=== PATIENT | female | born 1990 | race Caucasian/White ===

== ENCOUNTER 2020-02-02 16:44 | Emergency (ER) | payer OTHER, SELFPAY ==
--- NOTE | ~2020-02-02 | XR_ITS ---
XR knee RT min 4V 02/02/2020 17:22 INDICATION: Right knee pain for 2 days PROCEDURE: 4 views right knee COMPARISON: No prior studies for comparison. FINDINGS: Fracture, dislocation or subluxation is not identified. No significant joint effusion. The soft tissues appear within normal limits. No foreign bodies are identified. IMPRESSION: 1: NO ACUTE BONE OR JOINT ABNORMALITY IDENTIFIED. Reviewed, dictated and finalized at location A.
[2020-02-02 16:56] VITALS: BP 154/111; PULSE 82; RESP 20; TEMP 36.7; O2SAT 98
--- NOTE | 2020-02-02 17:16 | ED.EXTPRO ---
HPI - Extremity Problem General Chief complaint: Extremity Problem,Nontraumatic Stated complaint: r knee pain Time Seen by Provider: 02/02/20 17:00 Source: patient Mode of arrival: ambulatory Limitations: no limitations History of Present Illness HPI Narrative: Kaci is a 29-year-old female patient. She presents ambulatory to the emergency room. She states that she has had pain to the right knee for the past 3 days. There is no history of any trauma. The pain is both on the medial and lateral aspect as well as the anterior aspect. There is no swelling. There is no history of fever. She has not had similar problems in the past. MD Complaint: extremity pain Onset (ago): day(s) ( Three days) Pain Consistency: intermittent Location: right and knee Severity scale (1-10): 7 Quality: sharp Radiation: none Relieving factors: nothing Exacerbating factors: weight bearing, walking and other ( came ambulatory to the ER, gait appeared to be fairly normal with slight favoring of her right knee) Associated symptoms: denies other symptoms Context: other ( no history of fall or trauma. No history of gout) Related Data Home Medications Medication Instructions Recorded Confirmed norethindrone-ethin estradiol 1 tablet PO DAILY 02/02/20 02/02/20 [Nortrel 0.5/35 (28)] spironolactone 50 mg PO DAILY 02/02/20 02/02/20 valacyclovir 500 mg PO BID 02/02/20 02/02/20 Allergies Allergy/AdvReac Type Severity Reaction Status Date / Time No Known Allergies Allergy Verified 02/02/20 17:30 Review of Systems Review of Systems: All systems reviewed & are unremarkable except as noted in HPI and below Constitutional: Constitutional: Reports as per HPI, Reports no additional constitutional complaints, Denies chills and Denies fever(s) Eyes: Eyes: Reports as per HPI and Reports no additional eye complaints ENT: Reports system reviewed and no additional complaints, except as documented, Reports as per HPI, Denies dizziness and Denies sore throat Cardiovascular: Cardiovascular: Reports as per HPI, Reports no additional cardiovascular complaints, Denies chest pain and Denies radiating jaw, neck or arm pain Respiratory: Respiratory: Reports as per HPI, Reports no additional respiratory complaints, Denies cough and Denies dyspnea Gastrointestinal: Gastrointestinal: Reports as per HPI, Reports no additional gastrointestinal complaints, Denies abdominal pain, Denies nausea and Denies vomiting Genitourinary: Genitourinary: Reports no additional female genitourinary complaints, Denies hematuria and Denies dysuria Musculoskeletal: Musculoskeletal: Reports no additional musculoskeletal complaints and Reports arthralgias Integumentary/Breasts: Skin/Breast: Reports system reviewed and no additional complaints, except as docu, Reports as per HPI, Denies erythema and Denies rash Neurologic: Reports system reviewed and no additional complaints, except as documented, Reports as per HPI, Denies vertigo, Denies dizziness, Denies syncope, Denies headache(s), Denies focal weakness, Denies numbness and Denies weakness Psychiatric: Psychiatric: Reports no additional psychiatric complaints, Reports as per HPI and Denies anxiety Endocrine: Endocrine: Reports no additional endocrine complaints and Denies polydipsia Hematologic/Lymphatic: Hematologic/Lymphatic: Reports no additional hematologic/lymphatic complaints, Reports as per HPI, Denies easy bleeding and Denies easy bruising Allergic/Immunologic: Allergic/Immunologic: Reports no additional allergic/immunologic complaints, Reports as per HPI, Denies lip swelling and Denies tongue swelling [facility] Past Medical History Medical History (Updated 02/02/20 @ 17:43 by Chadd Reddy MD) Exogenous obesity Surgical History Surgical History (Updated 02/02/20 @ 17:22 by Chadd Reddy MD) History of section History of cystoscopy History of laparoscopy Social History Social History (Updated 01/20
[2020-02-02 17:46] VITALS: RESP 20
== END 2020-02-02 17:46 | disposition home or self-care (01) ==
PROVIDERS: Emergency Provider Surgery
DX: S83.91XA Sprain of unspecified site of right knee, initial encounter (principal)
CPT/HCPCS: 73564; 99282; 99283

== ENCOUNTER 2020-02-14 08:06 | Emergency (ER) | payer OTHER, SELFPAY ==
[2020-02-14 08:15] VITALS: BP 166/102; PULSE 85; RESP 20; TEMP 36.9; O2SAT 97
--- NOTE | 2020-02-14 08:21 | ED.NAVMDI ---
HPI - Nausea/Vomiting/Diarrhea General Chief complaint: Nausea/Vomiting/Diarrhea Stated complaint: tempamatic fever at work diarrhea abd pain Time Seen by Provider: 02/14/20 08:21 Source: patient Mode of arrival: ambulatory Limitations: no limitations History of Present Illness HPI Narrative: 29-year-old woman comes in today because she was sent home from work for having at screening temperature of 99.7?. She states that she had 2 bouts of diarrhea yesterday and some nausea and some mild abdominal pain however she has had no prior fever or chills, cough or cold symptoms, travel, or shortness of breath. Her only sick exposure was her son who was diagnosed with strep last week. Patient states that she has been treated for hypertension in the past with spironolactone but is out of her medication currently. She states that she has been unable to get in to see her doctor. MD elicited complaint: nausea, diarrhea and abdominal pain Location of pain: diffuse Pain consistency: intermittent and now resolved Exacerbating factors: none Relieving factors: none Related Data Home Medications Medication Instructions Recorded Confirmed norethindrone-ethin estradiol 1 tablet PO DAILY 02/02/20 02/14/20 [Nortrel 0.5/35 (28)] spironolactone 50 mg PO DAILY 02/02/20 02/14/20 valacyclovir 500 mg PO BID 02/02/20 02/14/20 Allergies Allergy/AdvReac Type Severity Reaction Status Date / Time No Known Allergies Allergy Verified 02/02/20 17:30 Review of Systems Constitutional: Constitutional: Reports as per HPI Eyes: Eyes: Denies change in vision and Denies photophobia ENT: Denies dysphagia, Denies nasal congestion and Denies sore throat Cardiovascular: Cardiovascular: Denies chest pain and Denies radiating jaw, neck or arm pain Respiratory: Respiratory: Denies cough, Denies dyspnea and Denies wheezing Gastrointestinal: Gastrointestinal: Reports as per HPI, Reports abdominal pain, Reports diarrhea, Reports nausea and Denies vomiting Genitourinary: Genitourinary: Denies nocturia and Denies dysuria Musculoskeletal: Musculoskeletal: Denies arthralgias and Denies joint swelling Integumentary/Breasts: Skin/Breast: Denies pruritus, Denies erythema and Denies rash Neurologic: Denies vertigo, Denies dizziness and Denies syncope Hematologic/Lymphatic: Hematologic/Lymphatic: Denies easy bleeding and Denies easy bruising Allergic/Immunologic: Allergic/Immunologic: Denies lip swelling and Denies wheezing [facility] Past Medical History Medical History Exogenous obesity Surgical History Surgical History History of section History of cystoscopy History of laparoscopy Social History Social History Smoking packs per day: 1 Smoking cigarettes per day: 20.0 Years smoked: 14 Smoking pack-years: 14.00 Smoking status: Current every day smoker Substance use: never Gender identity (if verbalized by the patient): Female Exam Const: General: healthy appearing, no acute distress and alert Nutritional Appearance: obese Orientation/consciousness: patient oriented x3 HENMT: Ears: external ears normal, TM's normal bilaterally and EAC's normal Mouth: Yes Normal oral and palatal mucosa present and Yes moist mucous membranes Throat: posterior oropharynx normal and uvula midline Eyes: Cornea: corneas normal Pupils: Equal, round and reactive pupils present EOM: EOMs intact bilaterally Resp: Effort & Inspection: normal respiratory effort and not labored Auscultation: clear to auscultation bilaterally, no rales, no rhonchi and no wheezes Cardio: Rate: regular rate Rhythm: regular rhythm Heart sounds: no murmurs GI: GI Palp: Yes Soft to palpation, No Tenderness to palpation present (GI), No Guarding due to palpation present (GI) and No Rigid due to palpation Skin
[2020-02-14 08:56] LABS: Influenza Control Valid (Valid)
[2020-02-14 09:00] VITALS: BP 160/92; PULSE 80; RESP 18; TEMP 36.8; O2SAT 98
== END 2020-02-14 09:04 | disposition home or self-care (01) ==
PROVIDERS: Emergency Provider Emergency Medicine
DX: R19.7 Diarrhea, unspecified (principal); I10 Essential (primary) hypertension
CPT/HCPCS: 87804; 99283

== ENCOUNTER 2020-03-18 19:02 | Emergency (ER) | payer OTHER, SELFPAY ==
--- NOTE | ~2020-03-18 | CT_ITS ---
EXAMINATION: CT abdomen pelvis wo con EXAM DATE: 03/18/2020 20:11 INDICATION: Hematuria, right flank pain. TECHNIQUE: Spiral CT of the abdomen and pelvis was performed without contrast. Axial, coronal and s agittal images were reviewed. The dose-length product (DLP) for this examination was 883.02 mGy-cm. The exposure was tailored according to patient size (auto mA exposure control), and iterative recons truction (ASIR) was used as additional dose reduction technique. Comparison is made to prior examinat ion from 09/19/2019. FINDINGS: There is hepatic steatosis without suspicious focal lesion identified. Spleen, adrenal glan ds, pancreas are unremarkable. The gallbladder is contracted but otherwise unremarkable. There is a left renal pelvic stone measuring 7 mm, nonobstructing. No ureteral stones or hydronephrosis. The u terus and ovaries are unremarkable, no adnexal mass. The bladder is unremarkable. There is no retro peritoneal or pelvic lymphadenopathy. The appendix is normal. The stomach and small bowel are unremarkable. There is expected amount of c olonic stool. No free intraperitoneal gas. The heart is normal in size. There are no pericardial or pleural effusions. The lung bases are unremarkable. The bones are unremarkable. IMPRESSION: 1. Left renal pelvic nonobstructing 7 mm stone. 2. No acute intra-abdominal findings. 3. Hepatic steatosis. Reviewed, dictated and finalized at location A.
[2020-03-18 19:05] VITALS: BP 153/90; PULSE 95; RESP 14; TEMP 36.8; O2SAT 98
--- NOTE | 2020-03-18 19:15 | ED.FEMALEGU ---
HPI - Female Genitourinary General Chief complaint: Urogenital-Female Stated complaint: blood in urine Time Seen by Provider: 03/18/20 19:31 Source: patient Mode of arrival: ambulatory Limitations: no limitations History of Present Illness HPI Narrative: 29-year-old woman comes in today complaining of intermittent hematuria which has been present for the last 2 weeks. Patient states she has also had some right flank pain. She denies fever, nausea, vomiting or diarrhea. She was seen at [facility] in [place] where they told her that she has diabetes. She has been told in the past that she had borderline diabetes but has not had any specific treatment. 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 MD elicited complaint: flank pain Pertinent past history: other ( Urolithiasis) Onset (ago): week(s) Location of symptoms: flank Severity: moderate Quality of pain: dull Consistency: constant Vaginal discharge: none Vaginal bleeding: none Urinary symptoms: Hematuria Exacerbating factors: none Relieving factors: none Associated symptoms: abdominal pain Related Data Allergies Allergy/AdvReac Type Severity Reaction Status Date / Time No Known Allergies Allergy Verified 02/02/20 17:30 Review of Systems Constitutional: Constitutional: Denies chills and Denies fatigue Eyes: Eyes: Denies change in vision and Denies photophobia ENT: Denies dysphagia, Denies nasal congestion and Denies sore throat Cardiovascular: Cardiovascular: Denies chest pain and Denies radiating jaw, neck or arm pain Respiratory: Respiratory: Denies cough, Denies dyspnea and Denies wheezing Gastrointestinal: Gastrointestinal: Reports abdominal pain, Denies nausea and Denies vomiting Genitourinary: Genitourinary: Reports hematuria, Denies nocturia and Denies dysuria Musculoskeletal: Musculoskeletal: Denies arthralgias and Denies joint swelling Integumentary/Breasts: Skin/Breast: Denies pruritus, Denies erythema and Denies rash Neurologic: Denies vertigo, Denies dizziness and Denies syncope Psychiatric: Psychiatric: Denies anxiety and Denies depression Hematologic/Lymphatic: Hematologic/Lymphatic: Denies easy bleeding and Denies easy bruising Allergic/Immunologic: Allergic/Immunologic: Denies lip swelling and Denies wheezing PMFSH Social History Social History Smoking packs per day: 1 Smoking cigarettes per day: 20.0 Years smoked: 14 Smoking pack-years: 14.00 Smoking status: Current every day smoker Substance use: never Gender identity (if verbalized by the patient): Female Exam Const: General: alert Nutritional Appearance: obese Orientation/consciousness: patient oriented x3 Other: [id number] acute distress HENMT: Ears: TM's normal bilaterally and EAC's normal Mouth: Yes Normal oral and palatal mucosa present and Yes moist mucous membranes Throat: posterior oropharynx normal Eyes: Conjunctivae: conjunctivae normal Pupils: Equal, round and reactive pupils present EOM: EOMs intact bilaterally Resp: Effort & Inspection: normal respiratory effort and not labored Auscultation: clear to auscultation bilaterally, no rales, no rhonchi and no wheezes Cardio: Rate: regular rate Rhythm: regular rhythm Heart sounds: no murmurs GI: GI Palp: Yes Soft to palpation and Yes Tenderness to palpation present (GI) ( mildly at right flank and suprapubic) Auscultation: normal bowel sounds Skin: General skin exam: normal color, no jaundice and no pallor Rashes: no rashes Neuro: General: patient oriented x3, moves all extremities, no focal motor deficits and CN's II-XI intact bilaterally Cranial nerves: Yes Nystagmus not present Extrem: General: normal to inspection and no clubbing, cyanosis or edema Psych: Appearance: grossly normal and well kempt Mental Status: mental status grossly normal Affect: normal affect Attitude: cooperative Thought content: Y
[2020-03-18 19:37] LABS: Add Urine Microscopic? YES; Appearance Urine Clear (Clear); Bilirubin Urine Negative (Negative); Blood Urine 3+ (Negative); Color Urine Yellow (Yellow); Glucose Urine UA 3+ (Negative); Ketones Urine Negative (Negative); Leukocyte Esterase Ur Negative (Negative); Nitrate Urine Negative (Negative); Protein Urine 1+ (Negative); Specific Grav Ur 1.025 (1.010-1.020); Urobilinogen Urine 0.2 mg/dL (0.2-1.0); pH Urine 6.5 (5.0-8.0)
[2020-03-18 19:40] LABS: Pregnancy On Board Control Positive; Specific Gravity Ur 1.025 (1.010-1.035); Urine Pregnancy Test Negative
[2020-03-18 19:44] LABS: Bacteria Urine 2+ /hpf; RBC Urine 21-50 /hpf (0-2); Squamous Epithelial Cell Urine Few /hpf (Few)
[2020-03-18 19:55] LABS: Hematocrit 41.5 % (35.0-49.0); Hemoglobin 14.3 g/dL (12.0-15.0); Mean Corpuscular HGB Conc 34.5 g/dL (32.0-36.0); Mean Corpuscular Hemoglobin 30.7 pg (27.0-31.0); Mean Corpuscular Volume 89.1 fL (78.0-102.0); Mean Platelet Volume 10.5 fl (9.2-11.8); Platelet Count Result 326 K/mm3 (150-420); Red Blood Count 4.66 M/mm3 (4.20-5.40); Red Cell Distribution Width 12.4 % (11.6-14.4); White Blood Count 12.9 K/mm3 (4.8-10.8)
[2020-03-18 20:06] LABS: Hemoglobin A1C 9.3 % (<5.7)
[2020-03-18 20:09] LABS: Blood Urea Nitrogen 11 mg/dL (7-18); Carbon Dioxide 30 mmol/L (21-32); Estimated CRCL calculation 95 ml/min; Estimated Glomerular Filt Rate > 60; Glucose 333 mg/dL (70-99)
[2020-03-18 20:10] LABS: Alanine Aminotransferase 130 U/L (14-59); Albumin Level 3.4 g/dL (3.4-5.0); Alkaline Phosphatase 74 U/L (46-116); Aspartate Amino Transferase 56 U/L (15-37); Bilirubin,Total 0.3 mg/dL (0.00-1.00); Calcium 8.8 mg/dL (8.5-10.1); Total Protein 7.2 g/dL (6.4-8.2)
[2020-03-18 20:15] LABS: Band Neutrophils Percent 0 % (0-6); Eosinophils Absolute Manual 0.51 K/mm3 (0.02-0.5); Eosinophils Percent Manual 4 % (1-6); Lymphocytes Absolute Manual 4.77 K/mm3 (1.1-4.5); Lymphocytes Percent Manual 37 % (18-44); Monocytes Absolute Manual 0.77 K/mm3 (0.1-0.90); Monocytes Percent Manual 6 % (3-9); Neutrophils Absolute Manual 6.83 K/mm3 (1.7-7.2); Neutrophils Percent Manual 53 % (46-73); Platelet Estimate Adequate (Adequate); Total Cells Counted 100
[2020-03-18 21:19] VITALS: RESP 14; O2SAT 98
[2020-03-19 00:46] LABS: Chloride 98 mmol/L (98-108); Osmolality Calculated 296 mOsm/kg (285-295); Sodium 137 mmol/L (136-145)
== END 2020-03-18 21:27 | disposition home or self-care (01) ==
PROVIDERS: Emergency Provider Emergency Medicine
DX: N20.9 Urinary calculus, unspecified (principal); E11.9 Type 2 diabetes mellitus without complications
CPT/HCPCS: 36415; 74176; 80053; 81001; 81025; 83036; 85025; 99284

== ENCOUNTER 2020-03-20 08:24 | Outpatient (CLI) | payer OTHER, SELFPAY ==
[2020-03-20 10:24] LABS: Anion Gap 17.2 mmol/L (7-16); Blood Urea Nitrogen 11 mg/dL (7-18); Calcium 9.4 mg/dL (8.5-10.1); Carbon Dioxide 25 mmol/L (21-32); Chloride 98 mmol/L (98-108); Estimated Glomerular Filt Rate > 60; Glucose 305 mg/dL (70-99); Osmolality Calculated 292 mOsm/kg (285-295); Potassium 4.2 mmol/L (3.5-5.1); Sodium 136 mmol/L (136-145)
[2020-03-23 10:11] LABS: C-Peptide 5.26 ng/mL (0.80-3.85)
[2020-03-25 07:42] LABS: Glutamic acid decarboxylase AA <5 IU/mL (<5)
[2020-03-27 16:45] LABS: Zinc Transporter 8 Antibody <10 U/mL (<15)
== END 2020-03-20 08:25 | disposition home or self-care (01) ==
LOC: CHSLAB 08:28
DX: E11.65 Type 2 diabetes mellitus with hyperglycemia (principal)
CPT/HCPCS: 36415; 80048; 84681; 86337; 86341

== ENCOUNTER 2020-05-15 07:51 | Outpatient (CLI) | payer OTHER, SELFPAY ==
[2020-05-15 09:16] LABS: Cholesterol 194 mg/dL (0-200); HDL Direct 42 mg/dL (40-60); LDL Cholesterol Calculated 117 mg/dL (<130); Triglycerides 177 mg/dL (0-150)
== END 2020-05-15 07:52 | disposition home or self-care (01) ==
LOC: CHSLAB 07:55
DX: E11.65 Type 2 diabetes mellitus with hyperglycemia (principal)
CPT/HCPCS: 36415; 80061

== ENCOUNTER 2020-06-07 02:51 | Emergency (ER) | payer OTHER, SELFPAY ==
[2020-06-07 02:51] VITALS: BP 156/94; PULSE 93; RESP 20; TEMP 35.9; O2SAT 98
--- NOTE | 2020-06-07 03:22 | ED.FEMALEGU ---
HPI - Female Genitourinary General Chief complaint: Urogenital-Female Stated complaint: Urinary Complaint Source: patient Mode of arrival: ambulatory Limitations: no limitations History of Present Illness HPI Narrative: This is a 29-year-old female presents with some dysuria, difficulty passing urine secondary to pain and pressure in her suprapubic area, has not been drinking enough fluid secondary to she fears that there would be pain and burning with urination. Currently there is no fever chills there is no nausea vomiting no hematuria no diarrhea constipation patient does have tenderness in the suprapubic area with palpation. MD elicited complaint: dysuria Onset (ago): day(s) Location of symptoms: suprapubic Severity: moderate Female Urogenital Radiation: Suprapubic Severity scale (1-10): 5 Quality of pain: burning Consistency: intermittent Vaginal discharge: none Vaginal bleeding: none Urinary symptoms: Dysuria and Difficulty Urinating Exacerbating factors: urination Relieving factors: none Related Data Home Medications Medication Instructions Recorded Confirmed metformin 1,000 mg PO BID 06/07/20 06/07/20 Allergies Allergy/AdvReac Type Severity Reaction Status Date / Time No Known Allergies Allergy Verified 02/02/20 17:30 Review of Systems Review of Systems: All systems reviewed & are unremarkable except as noted in HPI and below PMFSH Past Medical History Medical History Diabetes mellitus Exogenous obesity Surgical History Surgical History History of section History of cystoscopy History of laparoscopy Social History Social History Smoking packs per day: 1 Smoking cigarettes per day: 20.0 Years smoked: 14 Smoking pack-years: 14.00 Smoking status: Current every day smoker Substance use: never Gender identity (if verbalized by the patient): Female Exam Const: General: no acute distress and alert Orientation/consciousness: patient oriented x3 HENMT: Head: normal to inspection Eyes: Conjunctivae: conjunctivae normal Pupils: Equal, round and reactive pupils present EOM: EOMs intact bilaterally Neck: Neck: normal visual inspection Lymphatic: no lymphadenopathy noted Chest: Chest palpation & inspection: normal inspection of the chest Resp: Effort & Inspection: normal respiratory effort Auscultation: clear to auscultation bilaterally Cardio: Rate: regular rate Rhythm: regular rhythm GI: GI Palp: Yes Soft to palpation : General: Yes no CVA tenderness Other: Suprapubic tenderness with palpation Back/Spine/Pelvis: Back: no CVA tenderness Skin: General skin exam: normal color Rashes: no rashes Neuro: General: patient oriented x3, moves all extremities and no meningeal signs Extrem: General: normal to inspection Psych: Mental Status: mental status grossly normal Affect: Anxious affect present Course Course Emergency Course: Patient given Toradol 60 mg IM, with moderate relief of her pain and discomfort. Vital Signs Vital signs: Vital Signs Temperature 35.9 C L 06/07/20 02:51 Pulse Rate 93 06/07/20 02:51 Respiratory Rate 06/07/20 02:51 Blood Pressure 156/94 H 06/07/20 02:51 Pulse Oximetry 98 06/07/20 02:51 Temperature 35.9 C L 06/07/20 02:51 Pulse Rate 93 06/07/20 02:51 Respiratory Rate 06/07/20 02:51 Blood Pressure 156/94 H 06/07/20 02:51 Pulse Oximetry 98 06/07/20 02:51 MDM - Female Genitourinary Lab Data Labs: Urine Characteristics Clear Critical Care Time Critical Care Time Critical Care Time: No Discharge Plan Discharge Clinical Impression: UTI (urinary tract infection) Qualifiers: Urinary tract infection type: acute cystitis Hematuria presence: without hematuria Qualified Code(s): N30.00 - Acute cysti
[2020-06-07] MEDS: KETOROLAC (*BKC) 60 MG/2 ML VIAL IM (03:23)
[2020-06-07 03:33] LABS: Add Urine Microscopic? YES; Bilirubin Urine Negative (Negative); Blood Urine 3+ (Negative); Color Urine Yellow (Yellow); Glucose Urine UA Negative (Negative); Ketones Urine Trace (Negative); Leukocyte Esterase Ur Negative LEU/UL (Negative); Nitrate Urine Negative (Negative); Protein Urine 2+ (Negative); Specific Grav Ur >= 1.030 (1.010-1.020)
[2020-06-07 03:42] LABS: Bacteria Urine Trace /hpf; RBC Urine >75 /hpf (0-2); Squamous Epithelial Cell Urine Few /hpf (Few); WBC Urine 0-3 /hpf (0-3)
[2020-06-07 03:43] LABS: Mucus Urine Few /lpf
[2020-06-07 03:47] LABS: Appearance Urine Sl Cloudy (Clear); Calcium Oxalate Crystals Urine Present /hpf
[2020-06-07 03:53] LABS: Alanine Aminotransferase 105 U/L (14-59); Albumin Level 3.7 g/dL (3.4-5.0); Alkaline Phosphatase 57 U/L (46-116); Anion Gap 13.6 mmol/L (7-16); Aspartate Amino Transferase 36 U/L (15-37); Bilirubin,Total 0.5 mg/dL (0.00-1.00); Blood Urea Nitrogen 15 mg/dL (7-18); Calcium 9.1 mg/dL (8.5-10.1); Carbon Dioxide 27 mmol/L (21-32); Chloride 103 mmol/L (98-108); Estimated CRCL calculation 103 ml/min; Estimated Glomerular Filt Rate > 60; Glucose 93 mg/dL (70-99); Osmolality Calculated 290 mOsm/kg (285-295); Potassium 3.6 mmol/L (3.5-5.1); Sodium 140 mmol/L (136-145); Total Protein 7.6 g/dL (6.4-8.2)
[2020-06-07] MEDS: cefTRIAXone 1 GM VIAL IM (03:59)
[2020-06-07 04:00] VITALS: BP 148/98; PULSE 72; RESP 20; TEMP 36.3; O2SAT 98
== END 2020-06-07 04:14 | disposition home or self-care (01) ==
PROVIDERS: Emergency Provider Emergency Medicine
DX: N30.00 Acute cystitis without hematuria (principal)
CPT/HCPCS: 36415; 51701; 80053; 81001; 96372; 99283; 99284; J0696; J1885

== ENCOUNTER 2020-10-12 07:30 | Outpatient (CLI) | payer OTHER, SELFPAY ==
[2020-10-12 07:46] LABS: Basophils Absolute Auto 0.14 K/mm3 (0.00-0.10); Basophils Percent Auto 1.1 % (0.0-1.0); Eosinophils Absolute Auto 0.57 K/mm3 (0.02-0.50); Eosinophils Percent Auto 4.7 % (1.0-6.0); Hematocrit 48.6 % (35.0-49.0); Hemoglobin 16.1 g/dL (12.0-15.0); Immature Granulocyte Absolute 0.07 K/mm3 (0.00-0.00); Immature Granulocyte Percent A 0.6 % (0.0-0.0); Lymphocytes Absolute Auto 4.97 K/mm3 (1.10-4.50); Lymphocytes Percent Auto 40.8 % (18.0-42.0); Mean Corpuscular HGB Conc 33.1 g/dL (32.0-36.0); Mean Corpuscular Hemoglobin 30.3 pg (27.0-31.0); Mean Corpuscular Volume 91.4 fL (78.0-102.0); Mean Platelet Volume 9.8 fl (9.2-11.8); Monocytes Absolute Auto 0.89 K/mm3 (0.10-0.90); Monocytes Percent Auto 7.3 % (2.0-11.0); Neutrophils Absolute Auto 5.5 K/mm3 (1.7-7.2); Neutrophils Percent Auto 45.5 % (50.0-70.0); Platelet Count Result 390 K/mm3 (150-420); Red Blood Count 5.32 M/mm3 (4.20-5.40); Red Cell Distribution Width 12.7 % (11.6-14.4); White Blood Count 12.2 K/mm3 (4.8-10.8)
[2020-10-12 08:46] LABS: Alanine Aminotransferase 88 U/L (14-59); Albumin Level 3.8 g/dL (3.4-5.0); Alkaline Phosphatase 50 U/L (46-116); Anion Gap 9 mmol/L (8-16); Aspartate Amino Transferase 37 U/L (15-37); Bilirubin,Total 0.5 mg/dL (0.00-1.00); Blood Urea Nitrogen 12 mg/dL (7-18); Calcium 8.9 mg/dL (8.5-10.1); Carbon Dioxide 27 mmol/L (21-32); Chloride 105 mmol/L (98-108); Cholesterol 198 mg/dL (0-200); Estimated Glomerular Filt Rate > 60; Glucose 94 mg/dL (70-99); HDL Direct 43 mg/dL (40-60); LDL Cholesterol Calculated 120 mg/dL (<130); Osmolality Calculated 291 mOsm/kg (285-295); Potassium 4.8 mmol/L (3.5-5.1); Sodium 141 mmol/L (136-145); Total Protein 7.3 g/dL (6.4-8.2); Triglycerides 177 mg/dL (0-150)
== END 2020-10-12 07:31 | disposition home or self-care (01) ==
LOC: CHSLAB 07:34
DX: E11.65 Type 2 diabetes mellitus with hyperglycemia (principal)
CPT/HCPCS: 36415; 80053; 80061; 85025

== ENCOUNTER 2020-12-14 08:04 | Outpatient (CLI) | payer OTHER, SELFPAY ==
[2020-12-14 09:23] LABS: Thyroid Stimulating Hormone 0.86 uIU/mL (0.36-3.74)
[2020-12-18 14:30] LABS: Thyroid Stimulating Immunoglob <89 % baseline (<140)
== END 2020-12-14 08:05 | disposition home or self-care (01) ==
LOC: CHSLAB 08:08
DX: E05.00 Thyrotoxicosis with diffuse goiter without thyrotoxic crisis or storm (principal); Z83.49 Family history of other endocrine, nutritional and metabolic diseases
CPT/HCPCS: 36415; 84443; 84445

== ENCOUNTER → 2021-02-21 | Emergency (ER) | payer OTHER, SELFPAY ==
--- NOTE | 2021-02-21 14:45 | ED.GENADULT ---
HPI - General Adult General Stated complaint: YEAST INFECTION History of Present Illness HPI narrative: Patient left before she was brought into the emergency and before she was seen. Related Data Home Medications Medication Instructions Recorded Confirmed metformin 1,000 mg PO BID 06/07/20 06/07/20 Allergies Allergy/AdvReac Type Severity Reaction Status Date / Time No Known Allergies Allergy Verified 02/02/20 17:30 [facility] Past Medical History Medical History (Updated 06/08/20 @ 00:00 by Barbara Orozco) Diabetes mellitus Exogenous obesity Surgical History Surgical History History of section History of cystoscopy History of laparoscopy Social History Social History Smoking packs per day: 1 Smoking cigarettes per day: 20.0 Years smoked: 14 Smoking pack-years: 14.00 Smoking status: Current every day smoker Substance use: never Gender identity (if verbalized by the patient): Female Discharge Plan Discharge Prescriptions: No Action ondansetron 4 mg film 4 mg PO Q6H PRN (Reason: nausea and vomiting) Qty: 10 RF: 0 metformin 500 mg tablet 1,000 mg PO BID RF: 0 nitrofurantoin monohyd/m-cryst [Macrobid] 100 mg capsule 100 mg PO Q12H 7 Days Qty: 14 RF: 0 naproxen sodium 550 mg tablet 550 mg PO BID PRN (Reason: pain) Qty: 14 RF: 0
== END | disposition left against medical advice (07) ==
LOC: CHSED 07:32
PROVIDERS: Emergency Provider Emergency Medicine
DX: B99.8 Other infectious disease (principal)
CPT/HCPCS: 99199

== ENCOUNTER 2021-03-30 07:01 | Outpatient (CLI) | payer OTHER, SELFPAY ==
[2021-03-30 07:36] LABS: Hemoglobin A1C 5.8 % (<5.7)
[2021-03-30 07:41] LABS: Creatinine Urine 160.32 mg/dL (40-278)
[2021-03-30 07:56] LABS: MALB Creatinine Ratio 93.5 mg/g (0-30)
== END 2021-03-30 07:02 | disposition home or self-care (01) ==
LOC: CHSLAB 07:10
DX: E11.9 Type 2 diabetes mellitus without complications (principal)
CPT/HCPCS: 36415; 82043; 83036

== ENCOUNTER 2021-05-05 09:25 | Emergency (ER) | payer OTHER, SELFPAY ==
--- NOTE | 2021-05-05 09:40 | ED.BACK ---
HPI - Back Pain/Injury General Chief Complaint: Back Pain/Injury Stated Complaint: HURT BACK Time Seen by Provider: 05/05/21 09:45 Source: patient Mode of arrival: ambulatory Limitations: no limitations History of Present Illness HPI Narrative: 30-year-old woman with a history of low back pain comes in today complaining of low back pain. She states the pain started yesterday and that the pain radiates to her right upper buttock. she denies weakness in her legs, numbness, tingling, dysuria, hematuria and abdominal pain. 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 She denies prior back surgery. MD elicited complaint: back pain Pertinent past history: prior back pain Onset (ago): day(s) (1) Timing: constant Severity: severe Quality: sharp Location: lumbar spine Radiation: buttocks Exacerbating factors: movement and lifting Relieving factors: none Associated symptoms: denies other symptoms Treatments prior to arrival: NSAIDS Related Data Home Medications Medication Instructions Recorded Confirmed liraglutide [Victoza 3-Ty] 1.8 mg SUBCUT DAILY 05/05/21 05/05/21 lisinopril 10 mg PO DAILY 05/05/21 05/05/21 Allergies Allergy/AdvReac Type Severity Reaction Status Date / Time No Known Allergies Allergy Verified 05/05/21 09:47 Review of Systems Constitutional: Constitutional: Denies chills, Denies fever(s) and Denies weakness Eyes: Eyes: Denies change in vision and Denies photophobia ENT: Denies nasal congestion and Denies sore throat Respiratory: Respiratory: Denies cough and Denies dyspnea Gastrointestinal: Gastrointestinal: Denies abdominal pain, Denies nausea and Denies vomiting Genitourinary: Genitourinary: Denies hematuria, Denies nocturia and Denies dysuria Musculoskeletal: Musculoskeletal: Denies arthralgias and Denies joint swelling Integumentary/Breasts: Skin/Breast: Denies pruritus, Denies erythema and Denies rash Neurologic: Denies vertigo, Denies dizziness, Denies syncope, Denies focal weakness and Denies numbness Hematologic/Lymphatic: Hematologic/Lymphatic: Denies easy bleeding and Denies easy bruising Allergic/Immunologic: Allergic/Immunologic: Denies lip swelling and Denies throat swelling PMF Past Medical History Medical History Diabetes mellitus Exogenous obesity Surgical History Surgical History History of section History of cystoscopy History of laparoscopy Social History Social History Smoking packs per day: 1 Smoking cigarettes per day: 20.0 Years smoked: 14 Smoking pack-years: 14.00 Smoking status: Current every day smoker Substance use: never Gender identity (if verbalized by the patient): Female Exam Const: General: healthy appearing and alert Orientation/consciousness: patient oriented x3 Limitations: no limitations Other: Moderate acute distress. Eyes: Conjunctivae: conjunctivae normal Pupils: Equal, round and reactive pupils present EOM: EOMs intact bilaterally Resp: Effort & Inspection: normal respiratory effort and not labored Auscultation: clear to auscultation bilaterally, no rales, no rhonchi and no wheezes Cardio: Rate: regular rate Rhythm: regular rhythm Heart sounds: no murmurs Back/Spine/Pelvis: Other: Mild tenderness palpation the mid lumbar spine. There is no swelling, erythema, warmth, bruising or abnormal contour. Skin: General skin exam: normal color, no jaundice and no pallor Rashes: no rashes Neuro: General: moves all extremities, no focal motor deficits and CN's II-XI intact bilaterally Speech: normal speech Gait exam (Neuro): Normal gait present Other: DTRs 2+ and symmetric in the lower extremities. Extrem: General: normal to inspection and no clubbing, cyanosis or edema Psych: Appearance: grossly normal and
[2021-05-05 09:42] VITALS: BP 132/92; PULSE 98; RESP 20; TEMP 36.9; O2SAT 98
[2021-05-05 09:52] VITALS: BP 128/88; PULSE 91; RESP 20; TEMP 36.7; O2SAT 98
== END 2021-05-05 09:57 | disposition home or self-care (01) ==
PROVIDERS: Emergency Provider Emergency Medicine
DX: M54.5 Low back pain (principal)
CPT/HCPCS: 99283

== ENCOUNTER 2021-05-17 08:23 | Emergency (ER) | payer OTHER, SELFPAY ==
--- NOTE | ~2021-05-17 | CT_ITS ---
EXAMINATION: CT abdomen pelvis wo con DATE: 05/17/2021 09:56 INDICATION: Left flank pain for 5 hours. History of kidney stones. TECHNIQUE: Computed tomography (CT) of the abdomen and pelvis was performed without intravenous contr ast. The dose-length product was 854.07 mGy-cm. Automated exposure control and iterative reconstructi on technique were employed. COMPARISON: CT dated 03/18/2020. FINDINGS: Lung bases are unremarkable. Heart size normal. No significant pleural or pericardial effus ion. There is a 2 mm left ureterovesical junction stone with mild left hydronephrosis. There are ston es in the left renal pelvis. The liver, spleen, pancreas, adrenal glands and right kidney are normal. Nonobstructive bowel gas pat tern. Normal appendix. No abnormal pelvic masses or fluid collections. No significant vascular abnorm ality. No lymphadenopathy. No free air or free fluid. Tiny fat-containing umbilical hernia. There are injection granulomas in the anterior subcutaneous soft tissues. IMPRESSION: 1. Left ureterovesical junction stone measuring 2 mm with mild hydronephrosis. 2: Left nephrolithiasis. Reviewed, dictated and finalized at location A.
[2021-05-17 08:30] VITALS: BP 141/109; PULSE 99; RESP 20; TEMP 36.8; O2SAT 99
[2021-05-17] MEDS: ONDANSETRON INJ 4 MG/2 ML VIAL IV PUSH (08:52)
[2021-05-17] MEDS: KETOROLAC 30 MG/ML VIAL (*BKC) IV PUSH (08:52)
--- NOTE | 2021-05-17 09:07 | ED.ABDPAIN ---
HPI - Abdominal Pain General Chief Complaint: Urogenital-Female Stated Complaint: Kidney Stone Time Seen by Provider: 05/17/21 08:45 Source: patient and family Mode of arrival: ambulatory Limitations: no limitations History of Present Illness HPI narrative: Patient comes in with left flank pain, sharp, severe, pain 10/10, ongoing since 5:15am, associated with nausea and recurrent vomiting, radiating and cramp like, going from left flank to left genital area. Nothing has made this better or worse at home. MD elicited complaint: flank pain Onset (ago): hour(s) Pain Consistency: constant Location: L flank Severity: severe Quality: cramping and stabbing Radiation: other (groin) Relieving factors: nothing Treatments prior to arrival: NSAIDs Related Data Home Medications Medication Instructions Recorded Confirmed liraglutide [Victoza 3-Ty] 1.8 mg SUBCUT DAILY 05/05/21 05/17/21 lisinopril 10 mg PO DAILY 05/05/21 05/17/21 Allergies Allergy/AdvReac Type Severity Reaction Status Date / Time No Known Allergies Allergy Verified 05/05/21 09:47 Review of Systems Constitutional: Constitutional: Reports no additional constitutional complaints Eyes: Eyes: Reports no additional eye complaints ENT: Reports system reviewed and no additional complaints, except as documented Cardiovascular: Cardiovascular: Reports no additional cardiovascular complaints Respiratory: Respiratory: Reports no additional respiratory complaints Gastrointestinal: Gastrointestinal: Reports no additional gastrointestinal complaints Genitourinary: Genitourinary: Reports no additional female genitourinary complaints Musculoskeletal: Musculoskeletal: Reports no additional musculoskeletal complaints Integumentary/Breasts: Skin/Breast: Reports system reviewed and no additional complaints, except as docu Neurologic: Reports system reviewed and no additional complaints, except as documented Psychiatric: Psychiatric: Reports no additional psychiatric complaints Endocrine: Endocrine: Reports no additional endocrine complaints Hematologic/Lymphatic: Hematologic/Lymphatic: Reports no additional hematologic/lymphatic complaints Allergic/Immunologic: Allergic/Immunologic: Reports no additional allergic/immunologic complaints [facility] Past Medical History Medical History Diabetes mellitus Exogenous obesity Surgical History Surgical History History of section History of cystoscopy History of laparoscopy Family History Family History Mother Diabetes mellitus Heart disease Social History Social History Smoking packs per day: 1 Smoking cigarettes per day: 20.0 Years smoked: 14 Smoking pack-years: 14.00 Smoking status: Current every day smoker Substance use: never Gender identity (if verbalized by the patient): Female Exam Const: General: no acute distress and alert Orientation/consciousness: patient oriented x3 HENMT: Head: normal to inspection Ears: external ears normal and TM's normal bilaterally General nose exam: Normal external nose present Mouth: Yes Normal oral and palatal mucosa present Throat: posterior oropharynx normal Eyes: Conjunctivae: conjunctivae normal Neck: Neck: normal visual inspection Chest: Chest palpation & inspection: normal inspection of the chest Resp: Effort & Inspection: normal respiratory effort Auscultation: clear to auscultation bilaterally Cardio: Rate: regular rate Rhythm: regular rhythm GI: GI Palp: Yes Soft to palpation (nontender) : General: Yes no CVA tenderness Back/Spine/Pelvis: Back: no CVA tenderness Skin: General skin exam: normal color Neuro: General: patient oriented x3 and moves all extremities Extrem: General: normal to inspection Psych: Appearance:
[2021-05-17 09:29] LABS: Hematocrit 47.5 % (35.0-49.0); Hemoglobin 16.3 g/dL (12.0-15.0); Mean Corpuscular HGB Conc 34.3 g/dL (32.0-36.0); Mean Corpuscular Hemoglobin 30.9 pg (27.0-31.0); Mean Corpuscular Volume 90.1 fL (78.0-102.0); Mean Platelet Volume 9.9 fl (9.2-11.8); Platelet Count Result 359 K/mm3 (150-420); Red Blood Count 5.27 M/mm3 (4.20-5.40); Red Cell Distribution Width 12.8 % (11.6-14.4); White Blood Count 11.8 K/mm3 (4.8-10.8)
[2021-05-17] MEDS: LACTATED RINGERS 1,000 ML 999 ML IV CONT (09:29)
[2021-05-17] MEDS: HYDROmorphone HCL INJ (*CRX) 2 MG/ML VIAL 1 MG IV PUSH (09:29)
[2021-05-17 09:30] LABS: Appearance Urine Cloudy (Clear); Bilirubin Urine 1+ (Negative); Blood Urine 3+ (Negative); Glucose Urine UA Negative (Negative); Ketones Urine Trace (Negative); Leukocyte Esterase Ur Trace LEU/UL (Negative); Nitrate Urine Positive (Negative); Protein Urine 2+ (Negative); Specific Grav Ur >= 1.030 (1.010-1.020); pH Urine 5.5 (5.0-8.0)
[2021-05-17] MEDS: PHENAZOPYRIDINE HCL 100 MG TABLET 200 MG PO (09:30)
[2021-05-17 09:31] VITALS: TEMP 36.3
[2021-05-17 09:34] LABS: Add Urine Microscopic? YES; Color Urine Dark Brown (Yellow); RBC Urine >75 /hpf (0-2); WBC Urine 0-3 /hpf (0-3)
[2021-05-17 09:35] LABS: Bacteria Urine 1+ /hpf; Squamous Epithelial Cell Urine Few /hpf (Few)
[2021-05-17 09:44] LABS: Alanine Aminotransferase 56 U/L (14-59); Albumin Level 3.6 g/dL (3.4-5.0); Alkaline Phosphatase 56 U/L (46-116); Anion Gap 13 mmol/L (8-16); Aspartate Amino Transferase 27 U/L (15-37); Bilirubin,Total 0.4 mg/dL (0.00-1.00); Blood Urea Nitrogen 14 mg/dL (7-18); Carbon Dioxide 23 mmol/L (21-32); Chloride 103 mmol/L (98-108); Estimated Glomerular Filt Rate > 60; Glucose 125 mg/dL (70-99); Osmolality Calculated 289 mOsm/kg (285-295); Sodium 139 mmol/L (136-145); Total Protein 7.5 g/dL (6.4-8.2)
[2021-05-17 09:48] LABS: Band Neutrophils Percent 0 % (0-6); Basophils Percent Manual 0 % (0-1); Eosinophils Absolute Manual 0.23 K/mm3 (0.02-0.5); Eosinophils Percent Manual 2 % (1-6); Lymphocytes Absolute Manual 3.18 K/mm3 (1.1-4.5); Lymphocytes Percent Manual 27 % (18-44); Monocytes Absolute Manual 0.59 K/mm3 (0.1-0.90); Monocytes Percent Manual 5 % (3-9); Neutrophils Absolute Manual 7.78 K/mm3 (1.7-7.2); Neutrophils Percent Manual 66 % (46-73); Total Cells Counted 100
[2021-05-17 09:48] LABS: Pregnancy On Board Control Positive; Urine Pregnancy Test Negative
[2021-05-17 09:49] LABS: Platelet Estimate Adequate (Adequate)
[2021-05-17 10:01] VITALS: TEMP 36.9
[2021-05-17] MEDS: TAMSULOSIN HCL 0.4 MG CAPSULE PO (11:04)
--- NOTE | 2021-05-17 11:07 | PC.NURSE ---
report to jez adam
[2021-05-17 11:22] VITALS: BP 126/77; PULSE 86; RESP 16; O2SAT 98
[2021-05-17 11:25] VITALS: BP 126/77; PULSE 86; RESP 20; TEMP 36.6; O2SAT 98
== END 2021-05-17 11:27 | disposition home or self-care (01) ==
PROVIDERS: Emergency Provider Emergency Medicine
DX: N20.0 Calculus of kidney (principal); N30.01 Acute cystitis with hematuria
CPT/HCPCS: 36415; 74176; 80053; 81001; 81025; 85025; 87086; 96361; 96365; 96375; 99283; 99284; A9270; J0696; J1170; J1885; J2405; J7120

== ENCOUNTER 2021-05-26 11:05 | Emergency (ER) | payer OTHER, SELFPAY ==
[2021-05-26 11:10] VITALS: BP 134/85; PULSE 95; RESP 20; TEMP 36.8; O2SAT 98
--- NOTE | 2021-05-26 11:28 | ED.WOUNDLAC ---
HPI - Wound/Laceration General Chief Complaint: Wound/Laceration Stated Complaint: armpit needs cut open & tested for staph Source: patient Mode of arrival: ambulatory Limitations: no limitations History of Present Illness HPI narrative: this is 30-year-old female with history of diabetes presents with some abscess under her left axilla currently not draining it is or red firm tender nonfluctuant has had issues with some these abscess before and has been on antibiotics for MRSA. Currently there is no fever chills the area is firm hard nonfluctuant no drainage. Onset (ago): week(s) Location: other ( left axilla) Related Data Home Medications Medication Instructions Recorded Confirmed liraglutide [Victoza 3-Ty] 1.8 mg SUBCUT DAILY 05/05/21 05/26/21 lisinopril 10 mg PO DAILY 05/05/21 05/26/21 Allergies Allergy/AdvReac Type Severity Reaction Status Date / Time No Known Allergies Allergy Verified 05/05/21 09:47 Review of Systems Review of Systems: All systems reviewed & are unremarkable except as noted in HPI and below PMFSH Past Medical History Medical History (Updated 05/26/21 @ 11:32 by Wiley Goodman MD) Diabetes mellitus Exogenous obesity Surgical History Surgical History History of section History of cystoscopy History of laparoscopy Family History Family History Mother Diabetes mellitus Heart disease Social History Social History Smoking packs per day: 1 Smoking cigarettes per day: 20.0 Years smoked: 14 Smoking pack-years: 14.00 Smoking status: Current every day smoker Substance use: never Gender identity (if verbalized by the patient): Female Exam Const: General: no acute distress Orientation/consciousness: patient oriented x3 HENMT: Head: normal to inspection Eyes: Conjunctivae: conjunctivae normal Pupils: Equal, round and reactive pupils present EOM: EOMs intact bilaterally Neck: Neck: normal visual inspection Chest: Chest palpation & inspection: normal inspection of the chest Resp: Effort & Inspection: normal respiratory effort Auscultation: clear to auscultation bilaterally Cardio: Rate: regular rate Rhythm: regular rhythm GI: GI Palp: Yes Soft to palpation Back/Spine/Pelvis: Back: no CVA tenderness Skin: General skin exam: normal color Rashes: no rashes Other: Hard firm area under left axilla with no drainage is warm and tender to touch. Neuro: General: patient oriented x3 Extrem: General: normal to inspection and no pedal edema Psych: Mental Status: mental status grossly normal Affect: normal affect Course Course Emergency Course: Patient was explained to that the area is firm hard and not a meal able to IN D at this time has had issues in the past and was started on antibiotics, advised patient to take her antibiotics follow-up with primary care physician for possible referral to dermatology or plastic surgeon to have the cyst removed. Critical Care Time Critical Care Time Critical Care Time: No Discharge Plan Discharge Clinical Impression: Abscess Patient Disposition: Home, Self-Care Condition: Stable Instructions: Antibiotic Form, Abscess (ED) Additional Instructions: take medicine as prescribed and follow-up with primary care physician for possible referral to dermatology or plastic surgery to have the cyst removed. can use warm compress to affected area, ibuprofen 4 to 600 mg twice daily with meals to help with pain and inflammation. Prescriptions: New amoxicillin-pot clavulanate [Augmentin] 875-125 mg tablet 1 tablet PO Q12H Qty: 20 RF: 0 No Action lisinopril 10 mg tablet 10 mg PO DAILY RF: 0 Victoza 3-Ty 0.6 mg/0.1 mL (18 mg/3 mL) pen injector 1.8 mg SUBCUT DAILY RF: 0 Follow-up/Referrals: Davis Monreal M
== END 2021-05-26 11:40 | disposition home or self-care (01) ==
PROVIDERS: Emergency Provider Emergency Medicine; PCP Family Medicine
DX: L02.412 Cutaneous abscess of left axilla (principal)
CPT/HCPCS: 99283

== ENCOUNTER 2021-06-06 08:29 | Emergency (ER) | payer OTHER, SELFPAY ==
[2021-06-06 08:47] VITALS: BP 128/83; PULSE 81; RESP 16; TEMP 36.4; O2SAT 98
--- NOTE | 2021-06-06 09:07 | ED.EAR ---
HPI - Ear Problem General Chief complaint: Ear Stated complaint: EAR INFECTION Time Seen by Provider: 06/06/21 08:50 Source: patient Mode of arrival: ambulatory Limitations: no limitations History of Present Illness HPI Narrative: Patient comes in with moderately severe, sharp ear pain in left ear. Pain has been ongoing for the past 4 days, getting worse. Attempting to remove ear wax made pain more severe. Nothing has helped decrease the discomfort at home. MD Complaint: ear pain and decreased hearing Location: left ear Duration: intermittent Severity: moderate Exacerbating factors: nothing Context: Reports recent illness Associated symptoms ear: external ear tenderness, ear swelling and other (lymphadenopathy at preauricular and tonsilar node on the left side, and tenderness of these two areas noted ) Related Data Home Medications Medication Instructions Recorded Confirmed liraglutide [Victoza 3-Ty] 1.8 mg SUBCUT DAILY 05/05/21 06/06/21 lisinopril 10 mg PO DAILY 05/05/21 06/06/21 Allergies Allergy/AdvReac Type Severity Reaction Status Date / Time No Known Allergies Allergy Verified 06/06/21 08:54 Review of Systems Constitutional: Constitutional: Reports no additional constitutional complaints Eyes: Eyes: Reports no additional eye complaints ENT: Reports system reviewed and no additional complaints, except as documented Cardiovascular: Cardiovascular: Reports no additional cardiovascular complaints Respiratory: Respiratory: Reports no additional respiratory complaints Gastrointestinal: Gastrointestinal: Reports no additional gastrointestinal complaints Genitourinary: Genitourinary: Reports no additional female genitourinary complaints Musculoskeletal: Musculoskeletal: Reports no additional musculoskeletal complaints Integumentary/Breasts: Skin/Breast: Reports system reviewed and no additional complaints, except as docu Neurologic: Reports system reviewed and no additional complaints, except as documented Psychiatric: Psychiatric: Reports no additional psychiatric complaints Endocrine: Endocrine: Reports no additional endocrine complaints Hematologic/Lymphatic: Hematologic/Lymphatic: Reports no additional hematologic/lymphatic complaints Allergic/Immunologic: Allergic/Immunologic: Reports no additional allergic/immunologic complaints [facility] Past Medical History Medical History Diabetes mellitus Exogenous obesity Surgical History Surgical History History of section History of cystoscopy History of laparoscopy Family History Family History Mother Diabetes mellitus Heart disease Social History Social History Smoking packs per day: 1 Smoking cigarettes per day: 20.0 Years smoked: 14 Smoking pack-years: 14.00 Smoking status: Current every day smoker Alcohol use details: does not drink alcohol Substance use: never Gender identity (if verbalized by the patient): Female Exam Const: General: no acute distress and alert Orientation/consciousness: patient oriented x3 HENMT: Head: normal to inspection Other: She appears to have an otitis externa on the left side, which has affected local nodes as well, causing more severe discomfort. Canal is full of debris, but drum can be visualized and appears ok Eyes: Conjunctivae: conjunctivae normal Neck: Neck: normal visual inspection Chest: Chest palpation & inspection: normal inspection of the chest Resp: Effort & Inspection: normal respiratory effort Auscultation: clear to auscultation bilaterally Cardio: Rate: regular rate Rhythm: regular rhythm GI: Auscultation: normal bowel sounds : General: Yes no CVA tenderness Urinary Catheter: Urinary Catheter: patent and draining Back/Spine/Pelvis: Back: n
== END 2021-06-06 09:27 | disposition home or self-care (01) ==
PROVIDERS: Emergency Provider Emergency Medicine; PCP Family Medicine
DX: H60.312 Diffuse otitis externa, left ear (principal); H66.002 Acute suppurative otitis media without spontaneous rupture of ear drum, left ear
CPT/HCPCS: 99283

== ENCOUNTER 2021-06-06 09:43 | Outpatient (CLI) | payer OTHER, SELFPAY ==
--- NOTE | ~2021-06-06 | XR_ITS ---
EXAMINATION: XR chest 2V EXAM DATE: 06/06/2021 10:06 INDICATION: R/O TB for employment. TECHNIQUE: Frontal PA chest x-ray. There is no prior study for comparison. FINDINGS: The lungs are clear. The cardiomediastinal silhouette is within normal limits. There are no pleural effusions. There is no pneumothorax suspected. The bones and soft tissues are unremarka ble. IMPRESSION: Normal exam. Reviewed, dictated and finalized at location A. IMPRESSION: Normal exam.
== END 2021-06-06 09:44 | disposition home or self-care (01) ==
LOC: CHSIMG 09:51
PROVIDERS: PCP Family Medicine; Visit Provider Nurse Practitioner Family
DX: Z11.1 Encounter for screening for respiratory tuberculosis (principal)
CPT/HCPCS: 71046

== ENCOUNTER 2021-07-28 08:56 | Outpatient (CLI) | payer OTHER, SELFPAY ==
[2021-07-28 09:15] LABS: Hematocrit 48.3 % (35.0-49.0); Hemoglobin 16.3 g/dL (12.0-15.0); Mean Corpuscular HGB Conc 33.7 g/dL (32.0-36.0); Mean Corpuscular Hemoglobin 30.7 pg (27.0-31.0); Mean Platelet Volume 9.8 fl (9.2-11.8); Platelet Count Result 401 K/mm3 (150-420); Red Blood Count 5.31 M/mm3 (4.20-5.40); Red Cell Distribution Width 13.1 % (11.6-14.4); White Blood Count 12.1 K/mm3 (4.8-10.8)
[2021-07-28 09:56] LABS: Band Neutrophils Percent 0 % (0-6); Basophils Percent Manual 0 % (0-1); Eosinophils Absolute Manual 0.12 K/mm3 (0.02-0.5); Eosinophils Percent Manual 1 % (1-6); Lymphocytes Absolute Manual 5.44 K/mm3 (1.1-4.5); Lymphocytes Percent Manual 45 % (18-44); Monocytes Absolute Manual 0.84 K/mm3 (0.1-0.90); Monocytes Percent Manual 7 % (3-9); Neutrophils Absolute Manual 5.68 K/mm3 (1.7-7.2); Neutrophils Percent Manual 47 % (46-73); Platelet Estimate Adequate (Adequate); Total Cells Counted 100
[2021-07-28 09:58] LABS: Cholesterol 225 mg/dL (0-200); HDL Direct 38 mg/dL (40-60); LDL Cholesterol Calculated 142 mg/dL (<130); Triglycerides 226 mg/dL (0-150)
== END 2021-07-28 08:57 | disposition home or self-care (01) ==
LOC: CHSLAB 09:01
PROVIDERS: PCP Family Medicine
DX: R73.03 Prediabetes (principal); I10 Essential (primary) hypertension; D72.829 Elevated white blood cell count, unspecified
CPT/HCPCS: 36415; 80061; 85025

== ENCOUNTER 2021-11-09 15:25 | Emergency (ER) | payer OTHER, SELFPAY ==
[2021-11-09 15:48] VITALS: BP 129/84; PULSE 99; RESP 20; TEMP 36.6; O2SAT 98
[2021-11-09] MEDS: ACETAMINOPHEN 325 MG TABLET 650 MG PO (15:59)
[2021-11-09] MEDS: guaiFENesin 12 HR 600 MG TABCR PO (16:00)
[2021-11-09 16:15] LABS: Hemoglobin 16.1 g/dL (12.0-15.0); Mean Corpuscular HGB Conc 33.5 g/dL (32.0-36.0); Mean Corpuscular Hemoglobin 30.6 pg (27.0-31.0); Mean Corpuscular Volume 91.3 fL (78.0-102.0); Mean Platelet Volume 10.1 fl (9.2-11.8); Platelet Count Result 375 K/mm3 (150-420); Red Blood Count 5.26 M/mm3 (4.20-5.40); Red Cell Distribution Width 12.3 % (11.6-14.4); White Blood Count 11.9 K/mm3 (4.8-10.8)
[2021-11-09 16:28] LABS: Alanine Aminotransferase 37 U/L (14-59); Albumin Level 3.8 g/dL (3.4-5.0); Alkaline Phosphatase 61 U/L (46-116); Anion Gap 11 mmol/L (8-16); Aspartate Amino Transferase 13 U/L (15-37); Bilirubin,Total 0.3 mg/dL (0.00-1.00); Blood Urea Nitrogen 17 mg/dL (7-18); Calcium 9.3 mg/dL (8.5-10.1); Carbon Dioxide 27 mmol/L (21-32); Chloride 102 mmol/L (98-108); Estimated CRCL calculation 107 ml/min; Estimated Glomerular Filt Rate > 60; Glucose 105 mg/dL (70-99); Osmolality Calculated 291 mOsm/kg (285-295); Potassium 4.2 mmol/L (3.5-5.1); Sodium 140 mmol/L (136-145); Total Protein 7.9 g/dL (6.4-8.2)
[2021-11-09 16:37] LABS: Atypical Lymphocytes Present; Band Neutrophils Percent 0 % (0-6); Basophils Absolute Manual 0.47 K/mm3 (0-0.1); Basophils Percent Manual 4 % (0-1); Eosinophils Absolute Manual 0.71 K/mm3 (0.02-0.5); Eosinophils Percent Manual 6 % (1-6); Lymphocytes Absolute Manual 4.04 K/mm3 (1.1-4.5); Lymphocytes Percent Manual 34 % (18-44); Monocytes Absolute Manual 0.83 K/mm3 (0.1-0.90); Monocytes Percent Manual 7 % (3-9); Neutrophils Absolute Manual 5.83 K/mm3 (1.7-7.2); Neutrophils Percent Manual 49 % (46-73); Platelet Estimate Adequate (Adequate); Total Cells Counted 100
[2021-11-09 16:39] LABS: Influenza A QL RT-PCR Negative (Negative); Influenza B QL RT-PCR Negative (Negative); SARS-CoV-2 RNA PCR Negative (Negative)
[2021-11-09 17:04] VITALS: BP 124/87; PULSE 99; RESP 20; TEMP 36.1; O2SAT 97
--- NOTE | 2021-11-09 17:05 | ED.URI ---
HPI - URI/Sore Throat General Chief Complaint: Upper Respiratory Infection Stated Complaint: fever, headache, runny nose, body aches, cough Time Seen by Provider: 11/09/21 15:50 Source: patient and RN notes reviewed Mode of arrival: ambulatory Limitations: no limitations History of Present Illness MD elicited complaint: fever, cough, sore throat and nasal congestion Onset (ago): day(s) (2) Severity: mild Pain scale (0-10): 2 Able to tolerate fluids by mouth: Yes Exacerbating factors: nothing Relieving factors: OTC cold medicine Associated symptoms: denies other symptoms Related Data Home Medications Medication Instructions Recorded Confirmed liraglutide [Victoza 3-Ty] 1.8 mg SUBCUT DAILY 05/05/21 11/09/21 lisinopril 10 mg PO DAILY 05/05/21 11/09/21 Allergies Allergy/AdvReac Type Severity Reaction Status Date / Time No Known Allergies Allergy Verified 06/06/21 08:54 Review of Systems Review of Systems: All systems reviewed & are unremarkable except as noted in HPI and below Constitutional: Constitutional: Reports fever(s) ENT: Reports nasal congestion and Reports sore throat PMFSH Past Medical History Medical History Diabetes mellitus Exogenous obesity Pharyngitis Surgical History Surgical History History of section History of cystoscopy History of laparoscopy Family History Family History Mother Diabetes mellitus Heart disease Social History Social History Smoking packs per day: 1 Smoking cigarettes per day: 20.0 Years smoked: 14 Smoking pack-years: 14.00 Smoking status: Current every day smoker Alcohol use details: does not drink alcohol Substance use: never Gender identity (if verbalized by the patient): Female Sexual Orientation (if Verbalized by the Patient): Straight or Heterosexual Exam Const: General: no acute distress and alert Nutritional Appearance: obese Orientation/consciousness: patient oriented x3 HENMT: Head: normal to inspection Ears: external ears normal and TM's normal bilaterally General nose exam: Normal external nose present and Normal nares present Mouth: Yes moist mucous membranes Other: hyperemic pharynx Eyes: Conjunctivae: conjunctivae normal Pupils: Equal, round and reactive pupils present EOM: EOMs intact bilaterally Neck: Neck: normal visual inspection and no lymphadenopathy Chest: Chest palpation & inspection: normal inspection of the chest Resp: Effort & Inspection: normal respiratory effort Auscultation: clear to auscultation bilaterally Cardio: Rate: regular rate Rhythm: regular rhythm GI: GI Palp: Yes Soft to palpation and No Tenderness to palpation present (GI) Percussion: Yes normal to percussion Auscultation: normal bowel sounds : General: Yes bladder normal to palpation and Yes no CVA tenderness Back/Spine/Pelvis: Back: no CVA tenderness Skin: General skin exam: normal color Rashes: no rashes Neuro: General: patient oriented x3, moves all extremities, no meningeal signs, no focal motor deficits and CN's II-XI intact bilaterally Extrem: General: normal to inspection and no pedal edema Psych: Appearance: grossly normal and well kempt Mental Status: mental status grossly normal Affect: normal affect Attitude: cooperative Thought content: Yes Normal thought content present Course Course Emergency Course: Pt was in no acute distress. Less coughing. Reevaluation(s) Reevaluation #1: pt was stable in the ED. Date: 11/09/21 Time: 16:42 Vital Signs Vital signs: Vital Signs Temperature 36.6 C 11/09/21 15:48 Pulse Rate 99 11/09/21 15:48 Respiratory Rate 20 11/09/21 15:48 Blood Pressure 129/84 11/09/21 15:48 Pulse Oximetry 98 11/09/21 15:48 Temperature 36.
== END 2021-11-09 17:13 | disposition home or self-care (01) ==
PROVIDERS: Emergency Provider Emergency Medicine; PCP Family Medicine
DX: J02.9 Acute pharyngitis, unspecified (principal); J06.9 Acute upper respiratory infection, unspecified; Z20.822 Contact with and (suspected) exposure to COVID-19
CPT/HCPCS: 80053; 85025; 87081; 87502; 87880; 99283; A9270; C9803; U0003; U0005

== ENCOUNTER 2021-12-09 14:03 | Outpatient (CLI) | payer OTHER, SELFPAY ==
[2021-12-10 21:11] LABS: SARS-CoV-2 RNA PCR Positive
== END 2021-12-09 14:04 | disposition home or self-care (01) ==
LOC: CHSLAB 14:07
PROVIDERS: PCP Family Medicine; Visit Provider Family Medicine
DX: U07.1 COVID-19 (principal); Z01.818 Encounter for other preprocedural examination
CPT/HCPCS: C9803; U0003; U0005

== ENCOUNTER 2021-12-10 19:02 | Emergency (ER) | payer OTHER, SELFPAY ==
--- NOTE | ~2021-12-10 | XR_ITS ---
EXAMINATION: XR chest 1V portable DATE: 12/10/2021 19:57 INDICATION: Dyspnea. TECHNIQUE: A single frontal view of the chest was obtained on 2 radiographs. COMPARISON: Chest 2 views 06/06/2021, CT abdomen and pelvis 05/17/2021 FINDINGS: The chest demonstrates clear lungs without pneumonia, pleural effusion, or pneumothorax. Th e heart size is normal. IMPRESSION: 1. No acute cardiopulmonary disease. Reviewed, dictated and finalized at location A. 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
[2021-12-10 19:10] VITALS: BP 143/85; PULSE 99; RESP 18; TEMP 36.4; O2SAT 96
--- NOTE | 2021-12-10 19:11 | ED.SOB ---
HPI - SOB/Dyspnea General Chief Complaint: Shortness of Breath/Dyspnea Stated Complaint: trouble breathing Source: patient and RN notes reviewed Mode of arrival: ambulatory Limitations: no limitations History of Present Illness MD elicited complaint: shortness of breath and cough Pertinent past history: diabetes Onset (ago): day(s) (3) Context: recent illness ( positive COVID 1 week ago) Timing: intermittent Severity: moderate Exacerbating factors: exertion Relieving factors: rest Known history of: diabetes Associated symptoms: cough Treatment prior to arrival: none Related Data Home oxygen amount: none Home Medications Medication Instructions Recorded Confirmed liraglutide [Victoza 3-Ty] 1.8 mg SUBCUT DAILY 05/05/21 12/10/21 lisinopril 10 mg PO DAILY 05/05/21 12/10/21 rosuvastatin 5 mg PO DIRECTED 12/10/21 12/10/21 Allergies Allergy/AdvReac Type Severity Reaction Status Date / Time No Known Allergies Allergy Verified 12/10/21 19:25 Review of Systems Review of Systems: All systems reviewed & are unremarkable except as noted in HPI and below Constitutional: Constitutional: Denies chills and Denies fever(s) Cardiovascular: Cardiovascular: Denies chest pain Respiratory: Respiratory: Reports as per HPI Gastrointestinal: Gastrointestinal: Denies diarrhea, Denies nausea and Denies vomiting Musculoskeletal: Musculoskeletal: Reports myalgias Neurologic: Reports headache(s) [facility] Past Medical History Medical History (Updated 12/10/21 @ 20:07 by Jackson Mcgregor MD) Diabetes mellitus Exogenous obesity Hyperlipidemia Hypertension Pharyngitis Surgical History Surgical History History of section History of cystoscopy History of laparoscopy Family History Family History Mother Diabetes mellitus Heart disease Social History Social History Smoking packs per day: 1 Smoking cigarettes per day: 20.0 Years smoked: 14 Smoking pack-years: 14.00 Smoking status: Current every day smoker Alcohol use details: does not drink alcohol Substance use: never Gender identity (if verbalized by the patient): Female Sexual Orientation (if Verbalized by the Patient): Straight or Heterosexual Exam Const: General: healthy appearing and no acute distress Nutritional Appearance: well nourished and obese morbidly obese Orientation/consciousness: patient oriented x3 Other: with nurse in room during examination. HENMT: Head: normal to inspection Ears: external ears normal Face and sinus: normal facial exam Mouth: Yes moist mucous membranes Eyes: Conjunctivae: conjunctivae normal Pupils: Equal, round and reactive pupils present EOM: EOMs intact bilaterally Neck: Neck: normal visual inspection Resp: Effort & Inspection: normal respiratory effort Auscultation: clear to auscultation bilaterally Cardio: Rate: regular rate Rhythm: regular rhythm GI: GI Palp: Yes Soft to palpation and No Tenderness to palpation present (GI) Auscultation: normal bowel sounds Back/Spine/Pelvis: Cervical Spine: cervical ROM normal Thoracic/Lumbar Spine: thoraco-lumbar ROM normal Skin: General skin exam: normal color Rashes: no rashes Neuro: General: patient oriented x3, moves all extremities, no meningeal signs, no focal motor deficits and CN's II-XI intact bilaterally Speech: normal speech Gait exam (Neuro): Normal gait present Extrem: General: normal to inspection and no clubbing, cyanosis or edema Psych: Mental Status: mental status grossly normal Affect: normal affect Attitude: cooperative Thought content: Yes Normal thought content present Course Vital Signs Vital signs: Vital Signs Temperature 36.4 C 12/10/21 19:10 Pulse Rate 99 12/10/21 19:10 Respiratory Rate 18 12/10/21 19:10 Blood Pressure 143/85 H 12/10/21
[2021-12-10 19:49] LABS: Basophils Percent Auto 0.8 % (0.0-1.0); Eosinophils Absolute Auto 0.36 K/mm3 (0.02-0.50); Eosinophils Percent Auto 2.9 % (1.0-6.0); Hematocrit 45.4 % (35.0-49.0); Hemoglobin 15.8 g/dL (12.0-15.0); Immature Granulocyte Absolute 0.13 K/mm3 (0.00-0.00); Lymphocytes Absolute Auto 5.82 K/mm3 (1.10-4.50); Lymphocytes Percent Auto 46.3 % (18.0-42.0); Mean Corpuscular HGB Conc 34.8 g/dL (32.0-36.0); Mean Corpuscular Hemoglobin 31.2 pg (27.0-31.0); Mean Corpuscular Volume 89.5 fL (78.0-102.0); Mean Platelet Volume 10.1 fl (9.2-11.8); Monocytes Absolute Auto 0.78 K/mm3 (0.10-0.90); Monocytes Percent Auto 6.2 % (2.0-11.0); Neutrophils Absolute Auto 5.4 K/mm3 (1.7-7.2); Neutrophils Percent Auto 42.8 % (50.0-70.0); Platelet Count Result 352 K/mm3 (150-420); Red Blood Count 5.07 M/mm3 (4.20-5.40); Red Cell Distribution Width 12.4 % (11.6-14.4); White Blood Count 12.6 K/mm3 (4.8-10.8)
[2021-12-10 20:02] LABS: D Dimer 0.19 mg/L (0.19-0.50)
[2021-12-10 20:04] LABS: Alanine Aminotransferase 39 U/L (14-59); Albumin Level 3.8 g/dL (3.4-5.0); Alkaline Phosphatase 44 U/L (46-116); Anion Gap 13 mmol/L (8-16); Aspartate Amino Transferase 17 U/L (15-37); Bilirubin,Total 0.5 mg/dL (0.00-1.00); Blood Urea Nitrogen 16 mg/dL (7-18); CRP < 0.5 mg/dL (0.0-0.9); Carbon Dioxide 25 mmol/L (21-32); Chloride 100 mmol/L (98-108); Estimated CRCL calculation 110 ml/min; Estimated Glomerular Filt Rate > 60; Glucose 110 mg/dL (70-99); Osmolality Calculated 288 mOsm/kg (285-295); Potassium 3.9 mmol/L (3.5-5.1); Sodium 138 mmol/L (136-145); Total Protein 7.7 g/dL (6.4-8.2)
[2021-12-10 20:18] VITALS: BP 143/84; PULSE 88; RESP 18; O2SAT 100
== END 2021-12-10 20:26 | disposition home or self-care (01) ==
PROVIDERS: Emergency Provider Emergency Medicine; PCP Family Medicine
DX: U07.1 COVID-19 (principal)
CPT/HCPCS: 36415; 71045; 80053; 83735; 85025; 85380; 86140; 99283

== ENCOUNTER 2022-01-14 19:06 | Emergency (ER) | payer OTHER, SELFPAY ==
--- NOTE | ~2022-01-14 | CT_ITS ---
EXAMINATION: CT abdomen pelvis w con EXAM DATE: 01/14/2022 20:40 INDICATION: LLQ abdominal pain x 1 wk. no other complaints. TECHNIQUE: Spiral CT of the abdomen and pelvis was performed following intravenous injection of 100 m L Omnipaque 350. Axial, coronal and sagittal images of the abdomen and pelvis were reviewed. The do se-length product (DLP) for this examination was 1597.74 mGy-cm. The exposure was tailored according to patient size (auto mA exposure control), and iterative reconstruction (ASIR) was used as addition al dose reduction technique. Comparison is made to prior examination from 05/17/2021. FINDINGS: The liver, spleen, adrenal glands and pancreas are unremarkable. Gallbladder is unremarkab le. No biliary obstruction. Kidneys enhance symmetrically. There is a nonobstructing left renal pelv ic stone measuring 12 mm. The uterus is anteverted and morphologically normal. The ovaries are symmet donna and unchanged in size and appearance compared to prior study. The bladder is unremarkable. Ther e is no retroperitoneal or pelvic lymphadenopathy. There are no findings to suggest appendicitis. The stomach and small bowel are unremarkable. There is expected amount of colonic stool. No free intraperitoneal gas. The heart is normal in size. T here are no pericardial or pleural effusions. The lung bases are unremarkable. There are no osteobl astic or osteolytic lesions identified. IMPRESSION: Large nonobstructing left renal pelvic stone. Otherwise unremarkable exam. Reviewed, dictated and finalized at location [facility] IMPRESSION: Large nonobstructing left renal pelvic stone. Otherwise unremarkabl e exam.
[2022-01-14 19:16] VITALS: BP 138/89; PULSE 108; RESP 16; TEMP 37; O2SAT 96
--- NOTE | 2022-01-14 19:21 | ED.ABDPAIN ---
HPI - Abdominal Pain General Chief Complaint: Urogenital-Female Stated Complaint: pelvic pain Time Seen by Provider: 01/14/22 19:21 Source: patient History of Present Illness HPI narrative: 31-year-old female, smoker with obesity, diabetes mellitus, dyslipidemia, hypertension, kidney stones status post , laparoscopy and cystectomy, Polycystic ovarian disease with secondary infertility presents to the ER with -- left iliac fossa pain for 1 day. Her pain is similar to previous episodes of an ovarian cyst rupture. no fever. No nausea/ vomiting /diarrhea. No dysuria/hematuria Amenorrhea for many years. MD elicited complaint: abdominal pain Pertinent past history: kidney stones Onset (ago): day(s) ( 1 day) Pain Consistency: intermittent Location: LLQ Severity: moderate Migration to: no migration Exacerbating factors: nothing Relieving factors: nothing Associated symptoms: denies other symptoms Related Data Hx Last Menstrual Period: amenorrhea Patient : No Home Medications Medication Instructions Recorded Confirmed liraglutide [Victoza 3-Ty] 1.8 mg SUBCUT DAILY 05/05/21 01/14/22 lisinopril 10 mg PO DAILY 05/05/21 01/14/22 rosuvastatin 5 mg PO DIRECTED 12/10/21 01/14/22 etodolac 400 mg PO DAILY 01/14/22 01/14/22 pen needle, diabetic [BD Khloe 2nd 01/14/22 01/14/22 Gen Pen Needle] spironolactone 100 mg PO DAILY 01/14/22 01/14/22 Allergies Allergy/AdvReac Type Severity Reaction Status Date / Time No Known Allergies Allergy Verified 01/14/22 19:23 Review of Systems Review of Systems: All systems reviewed & are unremarkable except as noted in HPI and below Constitutional: Constitutional: Reports as per HPI Eyes: Eyes: Reports as per HPI and Reports no additional eye complaints ENT: Reports system reviewed and no additional complaints, except as documented Cardiovascular: Cardiovascular: Reports as per HPI and Reports no additional cardiovascular complaints Respiratory: Respiratory: Reports as per HPI and Reports no additional respiratory complaints Gastrointestinal: Gastrointestinal: Reports as per HPI, Reports no additional gastrointestinal complaints and Reports abdominal pain Genitourinary: Genitourinary: Reports no additional female genitourinary complaints Musculoskeletal: Musculoskeletal: Reports no additional musculoskeletal complaints Integumentary/Breasts: Skin/Breast: Reports system reviewed and no additional complaints, except as docu Neurologic: Reports system reviewed and no additional complaints, except as documented Psychiatric: Psychiatric: Reports no additional psychiatric complaints Endocrine: Endocrine: Reports no additional endocrine complaints Hematologic/Lymphatic: Hematologic/Lymphatic: Reports no additional hematologic/lymphatic complaints Allergic/Immunologic: Allergic/Immunologic: Reports no additional allergic/immunologic complaints PMFSH Past Medical History Medical History Diabetes mellitus Exogenous obesity Hyperlipidemia Hypertension Pharyngitis Surgical History Surgical History History of section History of cystoscopy History of laparoscopy Family History Family History Mother Diabetes mellitus Heart disease Social History Social History Smoking packs per day: 1 Smoking cigarettes per day: 20.0 Years smoked: 14 Smoking pack-years: 14.00 Smoking status: Current every day smoker Alcohol use details: does not drink alcohol Substance use: never Gender identity (if verbalized by the patient): Female Sexual Orientation (if Verbalized by the Patient): Straight or Heterosexual Exam Const: General: no acute distress and alert Nutritional Appearance: well nourished Orientation/consci
[2022-01-14] MEDS: HYDROcodone/acetaminophen (*CRX) 5-325 MG TABLET 1 TAB PO (19:38)
[2022-01-14 19:47] LABS: Basophils Absolute Auto 0.12 K/mm3 (0.00-0.10); Basophils Percent Auto 0.7 % (0.0-1.0); Eosinophils Absolute Auto 0.42 K/mm3 (0.02-0.50); Eosinophils Percent Auto 2.6 % (1.0-6.0); Hematocrit 46.1 % (35.0-49.0); Hemoglobin 15.8 g/dL (12.0-15.0); Immature Granulocyte Percent A 0.6 % (0.0-0.0); Lymphocytes Absolute Auto 5.85 K/mm3 (1.10-4.50); Lymphocytes Percent Auto 35.9 % (18.0-42.0); Mean Corpuscular HGB Conc 34.3 g/dL (32.0-36.0); Mean Corpuscular Hemoglobin 31.1 pg (27.0-31.0); Mean Corpuscular Volume 90.7 fL (78.0-102.0); Mean Platelet Volume 9.9 fl (9.2-11.8); Monocytes Absolute Auto 0.86 K/mm3 (0.10-0.90); Monocytes Percent Auto 5.3 % (2.0-11.0); Neutrophils Percent Auto 54.9 % (50.0-70.0); Platelet Count Result 416 K/mm3 (150-420); Red Blood Count 5.08 M/mm3 (4.20-5.40); Red Cell Distribution Width 12.6 % (11.6-14.4); White Blood Count 16.3 K/mm3 (4.8-10.8)
[2022-01-14 19:48] LABS: Add Urine Microscopic? NO; Appearance Urine Clear (Clear); Bilirubin Urine Negative (Negative); Blood Urine Negative (Negative); Color Urine Light Yellow (Yellow); Glucose Urine UA Negative (Negative); Ketones Urine Negative (Negative); Leukocyte Esterase Ur Negative (Negative); Nitrate Urine Negative (Negative); Protein Urine Negative (Negative); Specific Grav Ur 1.025 (1.010-1.020); Urobilinogen Urine 0.2 mg/dL (0.2-1.0)
[2022-01-14 19:53] LABS: Pregnancy On Board Control Positive; Urine Pregnancy Test Negative
--- NOTE | 2022-01-14 20:00 | PC.NURSE ---
pt refusing to keep bp and pulse ox on
[2022-01-14 20:01] LABS: Prothrombin Time 10.4 Seconds (9.50-12.10)
[2022-01-14 20:03] LABS: Alanine Aminotransferase 33 U/L (14-59); Albumin Level 3.8 g/dL (3.4-5.0); Alkaline Phosphatase 61 U/L (46-116); Anion Gap 13 mmol/L (8-16); Bilirubin,Total 0.5 mg/dL (0.00-1.00); Blood Urea Nitrogen 22 mg/dL (7-18); Calcium 8.6 mg/dL (8.5-10.1); Carbon Dioxide 24 mmol/L (21-32); Chloride 99 mmol/L (98-108); Estimated CRCL calculation 106 ml/min; Estimated Glomerular Filt Rate > 60; Glucose 211 mg/dL (70-99); Osmolality Calculated 291 mOsm/kg (285-295); Sodium 136 mmol/L (136-145); Total Protein 7.7 g/dL (6.4-8.2)
[2022-01-14 20:08] LABS: Lactic Acid Reflex 1.1 mmol/L (0.4-2.0)
[2022-01-14 20:14] LABS: Aspartate Amino Transferase 20 U/L (15-37)
[2022-01-14 20:15] LABS: Lipase 206 U/L (73-393)
[2022-01-14] MEDS: SODIUM CHLORIDE 0.9% IV 500 ML 999 ML IV CONT (20:45)
[2022-01-14 21:47] VITALS: BP 127/79; PULSE 88; RESP 16; TEMP 36.6; O2SAT 99
== END 2022-01-14 21:53 | disposition home or self-care (01) ==
PROVIDERS: Emergency Provider Internal Medicine Critical Care Medicine; PCP Family Medicine
DX: R10.9 Unspecified abdominal pain (principal); N20.0 Calculus of kidney
CPT/HCPCS: 36415; 74177; 80053; 81003; 81025; 83605; 83690; 85025; 85610; 99284; A9270; J7040; Q9967

== ENCOUNTER 2022-01-20 07:05 | Outpatient (CLI) | payer OTHER, SELFPAY ==
[2022-01-20 07:17] LABS: Hematocrit 47.6 % (35.0-49.0); Hemoglobin 16.2 g/dL (12.0-15.0); Mean Corpuscular Hemoglobin 31.3 pg (27.0-31.0); Mean Corpuscular Volume 92.1 fL (78.0-102.0); Mean Platelet Volume 9.7 fl (9.2-11.8); Platelet Count Result 394 K/mm3 (150-420); Red Blood Count 5.17 M/mm3 (4.20-5.40); Red Cell Distribution Width 12.7 % (11.6-14.4); White Blood Count 12.5 K/mm3 (4.8-10.8)
--- NOTE | 2022-01-20 07:25 | ECG_ITS ---
Measurements Intervals [place] Rate: 85 P: 41 FL: 163 QRS: 53 QRSD: 93 T: 41 QT: 352 QTc: 421 Interpretive Statements SINUS RHYTHM RIGHT VENTRICULAR CONDUCTION DELAY NO PREVIOUS ECG AVAILABLE FOR COMPARISON Electronically Signed On 01-20-2022 12:32:08 HOME HEALTH REGISTERED NURSE by Martinez Cline M.D.
[2022-01-20 08:55] LABS: Anion Gap 9 mmol/L (8-16); Blood Urea Nitrogen 17 mg/dL (7-18); Calcium 9.2 mg/dL (8.5-10.1); Carbon Dioxide 28 mmol/L (21-32); Chloride 101 mmol/L (98-108); Cholesterol 147 mg/dL (0-200); Estimated Glomerular Filt Rate > 60; Glucose 94 mg/dL (70-99); HDL Direct 41 mg/dL (40-60); LDL Cholesterol Calculated 66 mg/dL (<130); Osmolality Calculated 287 mOsm/kg (285-295); Potassium 5.2 mmol/L (3.5-5.1); Sodium 138 mmol/L (136-145); Triglycerides 198 mg/dL (0-150)
== END 2022-01-20 07:06 | disposition home or self-care (01) ==
PROVIDERS: PCP Family Medicine
DX: Z01.818 Encounter for other preprocedural examination (principal); N91.2 Amenorrhea, unspecified; E78.5 Hyperlipidemia, unspecified
CPT/HCPCS: 36415; 80048; 80061; 85027; 93005

== ENCOUNTER 2022-02-14 19:30 | Emergency (ER) | payer OTHER, SELFPAY ==
[2022-02-14 19:35] VITALS: BP 123/64; PULSE 97; RESP 18; TEMP 36.2; O2SAT 98
--- NOTE | 2022-02-14 19:49 | ED.SKABFB ---
HPI - Skin/Abscess/Foreign Bdy General Chief complaint: Urogenital-Female Stated complaint: poss blood infection Time Seen by Provider: 02/14/22 19:49 Source: patient History of Present Illness HPI narrative: 31-year-old female with a history of obesity,hypertension, dyslipidemia, left pelvic kidney stone status post percutaneous lithotripsy / nephrostomy/ removal of the stone on 02/06/2022 presents to the ER with -- left flank pain -- Dysuria/hematuria -- erythematous rash over the left lateral abdominal wall extending anteriorly. The rash is not connected to left lumbar incision. The rash is painful. Prior history of MRSA. MD complaint: rash Tetanus up to date: yes Severity: mild Relieving factors: none Exacerbating factors: none Treatments prior to arrival: antibiotic ( currently on Bactrim) Related Data Home Medications Medication Instructions Recorded Confirmed liraglutide [Victoza 3-Ty] 1.8 mg SUBCUT DAILY 05/05/21 02/14/22 lisinopril 10 mg PO DAILY 05/05/21 02/14/22 rosuvastatin 5 mg PO DIRECTED 12/10/21 02/14/22 etodolac 400 mg PO BID 01/14/22 02/14/22 pen needle, diabetic [BD Khloe 2nd 01/14/22 02/14/22 Gen Pen Needle] spironolactone 100 mg PO DAILY 01/14/22 02/14/22 Allergies Allergy/AdvReac Type Severity Reaction Status Date / Time No Known Allergies Allergy Verified 01/14/22 19:23 Review of Systems Review of Systems: All systems reviewed & are unremarkable except as noted in HPI and below Constitutional: Constitutional: Reports as per HPI and Reports no additional constitutional complaints Eyes: Eyes: Reports as per HPI and Reports no additional eye complaints ENT: Reports system reviewed and no additional complaints, except as documented and Reports as per HPI Cardiovascular: Cardiovascular: Reports as per HPI and Reports no additional cardiovascular complaints Respiratory: Respiratory: Reports as per HPI and Reports no additional respiratory complaints Gastrointestinal: Gastrointestinal: Reports as per HPI, Reports no additional gastrointestinal complaints and Reports abdominal pain Comments: left flank pain Genitourinary: Genitourinary: Reports no additional female genitourinary complaints Musculoskeletal: Musculoskeletal: Reports no additional musculoskeletal complaints and Reports as per HPI Integumentary/Breasts: Skin/Breast: Reports system reviewed and no additional complaints, except as docu Comments: erythematous rash which is 3-4 cm wide and extends from left lateral lumbar region anteriorly onto the abdominal wall. No itching/tenderness Neurologic: Reports system reviewed and no additional complaints, except as documented and Reports as per HPI Psychiatric: Psychiatric: Reports no additional psychiatric complaints and Reports as per HPI Endocrine: Endocrine: Reports no additional endocrine complaints Hematologic/Lymphatic: Hematologic/Lymphatic: Reports no additional hematologic/lymphatic complaints Allergic/Immunologic: Allergic/Immunologic: Reports no additional allergic/immunologic complaints [facility] Past Medical History Medical History (Updated 02/14/22 @ 21:01 by Jared Rowell MD) Diabetes mellitus Exogenous obesity Hyperlipidemia Hypertension Pharyngitis Surgical History Surgical History History of section History of cystoscopy History of laparoscopy Family History Family History Mother Diabetes mellitus Heart disease Social History Social History Smoking packs per day: 1 Smoking cigarettes per day: 20.0 Years smoked: 14 Smoking pack-years: 14.00 Smoking status: Current every day smoker Alcohol use details: does not drink alcohol Substance use: never Gender identity (if verbalized by the patient): Female Sexual Orientation (if Verbalized by the Pat
[2022-02-14 20:24] LABS: Basophils Absolute Auto 0.13 K/mm3 (0.00-0.10); Basophils Percent Auto 0.9 % (0.0-1.0); Eosinophils Absolute Auto 0.34 K/mm3 (0.02-0.50); Eosinophils Percent Auto 2.5 % (1.0-6.0); Hematocrit 43.5 % (35.0-49.0); Hemoglobin 14.6 g/dL (12.0-15.0); Immature Granulocyte Absolute 0.17 K/mm3 (0.00-0.00); Immature Granulocyte Percent A 1.2 % (0.0-0.0); Lymphocytes Absolute Auto 5.56 K/mm3 (1.10-4.50); Lymphocytes Percent Auto 40.3 % (18.0-42.0); Mean Corpuscular HGB Conc 33.6 g/dL (32.0-36.0); Mean Corpuscular Hemoglobin 31.3 pg (27.0-31.0); Mean Corpuscular Volume 93.3 fL (78.0-102.0); Mean Platelet Volume 9.5 fl (9.2-11.8); Monocytes Percent Auto 5.8 % (2.0-11.0); Neutrophils Absolute Auto 6.8 K/mm3 (1.7-7.2); Neutrophils Percent Auto 49.3 % (50.0-70.0); Platelet Count Result 452 K/mm3 (150-420); Red Blood Count 4.66 M/mm3 (4.20-5.40); Red Cell Distribution Width 12.8 % (11.6-14.4); White Blood Count 13.8 K/mm3 (4.8-10.8)
[2022-02-14 20:24] LABS: Add Urine Microscopic? YES; Appearance Urine Clear (Clear); Bilirubin Urine Negative (Negative); Blood Urine 1+ (Negative); Color Urine Light Yellow (Yellow); Glucose Urine UA Negative (Negative); Ketones Urine Negative (Negative); Leukocyte Esterase Ur Negative (Negative); Nitrate Urine Negative (Negative); Protein Urine Negative (Negative); Specific Grav Ur <= 1.005 (1.010-1.020); Urobilinogen Urine 0.2 mg/dL (0.2-1.0)
[2022-02-14 20:28] LABS: Bacteria Urine Trace /hpf; Squamous Epithelial Cell Urine Rare /hpf (Few); WBC Urine None seen /hpf (0-3)
[2022-02-14 20:45] LABS: Alanine Aminotransferase 31 U/L (14-59); Albumin Level 3.9 g/dL (3.4-5.0); Alkaline Phosphatase 54 U/L (46-116); Anion Gap 11 mmol/L (8-16); Aspartate Amino Transferase 11 U/L (15-37); Bilirubin,Total 0.2 mg/dL (0.00-1.00); Blood Urea Nitrogen 12 mg/dL (7-18); Calcium 9.1 mg/dL (8.5-10.1); Carbon Dioxide 25 mmol/L (21-32); Chloride 101 mmol/L (98-108); Estimated CRCL calculation 110 ml/min; Estimated Glomerular Filt Rate > 60; Glucose 94 mg/dL (70-99); Lipase 240 U/L (73-393); Osmolality Calculated 283 mOsm/kg (285-295); Potassium 3.7 mmol/L (3.5-5.1); Sodium 137 mmol/L (136-145)
[2022-02-14 21:08] VITALS: BP 111/69; PULSE 78; RESP 18; TEMP 36.3; O2SAT 98
== END 2022-02-14 21:13 | disposition home or self-care (01) ==
PROVIDERS: Emergency Provider Internal Medicine Critical Care Medicine; PCP Family Medicine
DX: R21 Rash and other nonspecific skin eruption (principal); R10.9 Unspecified abdominal pain
CPT/HCPCS: 36415; 80053; 81001; 83605; 83690; 85025; 87040; 87081; 99283

== ENCOUNTER 2022-05-07 12:23 | Outpatient (CLI) | payer OTHER, SELFPAY ==
[2022-05-07 13:13] LABS: SARS-CoV-2 RNA PCR Negative (Negative)
== END 2022-05-07 12:24 | disposition home or self-care (01) ==
LOC: CHSLAB 12:24
PROVIDERS: Visit Provider Family Medicine
DX: Z01.818 Encounter for other preprocedural examination (principal); Z20.822 Contact with and (suspected) exposure to COVID-19
CPT/HCPCS: C9803; U0003; U0005